=== PATIENT | male | born 1975 ===

== ENCOUNTER 2023-09-05 00:44 | Emergency (ER) | payer OTHER ==
[2023-09-05 00:50] VITALS: TEMP 98.3
[2023-09-05] MEDS: TOPICAL SKIN ADHESIVE 1 EACH AMP TOPICAL ONE (01:20)
--- NOTE | 2023-09-05 01:49 | ED ---
General Adult HPI - General Chief complaint: Extremity Injury, Lower Stated complaint: Leg Bleeding Time Seen by Provider: 09/05/23 00:54 Source: patient, EMS Mode of arrival: EMS - History of Present Illness Initial comments: This patient is a 48-year-old man who presents with complaint of bleeding from the right leg, lower portion. Patient states that he had removed a scab with nail clippers and then the leg would not stop bleeding. The patient states that the bleeding saturated through 3 pads and therefore he called EMS. He denies symptoms of anemia. No orthostatic symptoms. No lightheadedness, palpitations, syncope. No chest pain or dyspnea. Onset/Timin -: hour(s) Severity scale (1-10): 0 Consistency: constant Improves with: none Worsens with: none Associated Symptoms: denies other symptoms Treatments Prior to Arrival: other (bandage) - Related Data Allergies Allergy/AdvReac Type Severity Reaction Status Date / Time No Known Allergies Allergy Verified 09/05/23 00:50 Review of Systems ROS Statement: Those systems with pertinent positive or pertinent negative responses have been documented in the HPI. ROS Other: All systems not noted in ROS Statement are negative. Constitutional: Denies: fever, chills, weakness Respiratory: Denies: dyspnea Cardiovascular: Denies: chest pain, palpitations Gastrointestinal: Denies: nausea, vomiting Skin: Reports: as per HPI, lesions Neurological: Denies: headache Hematological/Lymphatic: Denies: easy bleeding Past Medical History Past Medical History: No Reported History History of Any Multi-Drug Resistant Organisms: None Reported Past Surgical History: No Surgical Hx Reported Past Psychological History: No Psychological Hx Reported Smoking Status: Never smoker Past Alcohol Use History: None Reported Past Drug Use History: None Reported General Exam General appearance: alert, in no apparent distress Respiratory exam: Present: normal lung sounds bilaterally. Absent: respiratory distress, wheezes, rales, rhonchi, stridor, accessory muscle use Cardiovascular Exam: Present: regular rate, normal rhythm, normal heart sounds. Absent: systolic murmur, diastolic murmur, rubs, gallop GI/Abdominal exam: Present: soft. Absent: distended, tenderness, guarding, rebound, rigid Neurological exam: Present: alert Skin exam: Present: warm, dry, normal color, other (Varicosity at the lateral aspect of the right leg about mid tibial level. There is no pulsatile bleeding.) Course Vital Signs 09/05/23 09/05/23 00:47 02:00 Temperature 98.3 F 98.3 F Pulse Rate 88 87 Respiratory 16 18 Rate Blood Pressure 141/94 136/90 O2 Sat by Pulse 97 96 Oximetry Medical Decision Making - Medical Decision Making I applied silver nitrate cautery and then applied skin adhesive over the varicosity. There was no further bleeding. Discussed appropriate further care and follow-up as well as return parameters. Was pt. sent in by a medical professional or institution (, ELISA, GROUP HOME WORKER, urgent care, hospital, or [place] [facility] facility...) When possible be specific @ -[No] Did you speak to anyone other than the patient for history (EMS, parent, family, police, friend...)? What history was obtained from this source @ -[No] Did you review nursing and triage notes (agree or disagree)? Why? @ -[I reviewed and agree with nursing and triage notes] Were old charts reviewed (outside hosp., previous admission, EMS record, old EKG, old radiological studies, urgent care reports/EKG's, [place] [facility] records)? Report findings @ -[No old charts were reviewed] Differential Diagnosis (chest pain, altered mental status, abdominal pain women, abdominal pain men, vaginal bleeding, weakness, fever, dyspnea, syncope, headache, dizziness, GI bleed, back pain, seizure, CVA, palpatations, mental health, musculoskeletal)? @ -[not applicable] EKG interpreted by me (3pts min.). @ -[As above] X-rays interpreted by me (1pt min.). @ -[None done] CT interpreted by me (1pt min.). @ -[None done] U/S interpreted by me (1pt. min.). @ -[None done] What testing was considered but not performed or refused? (CT, X-rays, U/S, labs)? Why? @ -[None] What meds were considered but not given or refused? Why? @ -[None] Did you discuss the management of the patient with other professionals (professionals i.e. ELISA Duran, GROUP HOME WORKER, lab, RT, psych nurse, clinical social worker, clearance diver, teacher, search and rescue officer, housing case manager)? Give summary @ -[No] Was smoking cessation discussed for >3mins.? @ -[No] Was critical care preformed (if so, how long)? @ -[No] Were there social determinants of health that impacted care today? How? (Homelessness, low income, unemployed, alcoholism, drug addiction, transportation, low edu. Level, literacy, decrease access to med. care, half-way, rehab)? @ -[No] Was there de-escalation of care discussed even if they declined (Discuss DNR or withdrawal of care, Hospice)? DNR status @ -[No] What co-morbidities impacted this encounter? (DM, HTN, Smoking, COPD, CAD, Cancer, CVA, ARF, Chemo, Hep., AIDS, mental health diagnosis, sleep apnea, morbid obesity)? @ -[None] Was patient admitted / discharged? Hospital course, mention meds given and route, prescriptions, significant lab abnormalities, going to OR and other pertinent info. @ -[See above Undiagnosed new problem with uncertain prognosis? @ -[No] Drug Therapy requiring intensive monitoring for toxicity (Heparin, Nitro, Insulin, Cardizem)? @ -[No] Were any procedures done? @ -[No] Diagnosis/symptom? @ -[Bleeding varicosity Acute, or Chronic, or Acute on Chronic? @ -[Acute Uncomplicated (without systemic symptoms) or Complicated (systemic symptoms)? @ -[Uncomplicated Side effects of treatment? @ -[No] Exacerbation, Progression, or Severe Exacerbation? @ -[No] Poses a threat to life or bodily function? How? (Chest pain, [place], [place], pneumonia, PE, COPD, DKA, ARF, appy, cholecystitis, CVA, Diverticulitis, Homicidal, Suicidal, threat to staff... and all critical care pts) @ -[No] Disposition Clinical Impression: Bleeding from varicose vein Disposition: HOME SELF-CARE Condition: Good Instructions (If sedation given, give patient instructions): Venous Insufficiency (DC) Is patient prescribed a controlled substance at d/c from ED?: No Referrals: Beth Maurice [Primary Care Provider] - 1-2 days
[2023-09-05 02:18] VITALS: BP 136/90; PULSE 87; RESP 18
== END 2023-09-05 02:00 | disposition home or self-care (01) ==
LOC: EC 00:44
DX: I83.891 Varicose veins of right lower extremity with other complications (principal)
CPT/HCPCS: 99283

== ENCOUNTER → 2024-06-21 | Outpatient (CLI) | payer OTHER ==
--- NOTE | 2024-06-21 09:35 | US ---
EXAMINATION TYPE: US arterial LE single level DATE OF EXAM: 06/21/2024 8:36 AM COMPARISONS: None CLINICAL INDICATION: Male, 49 years old with history of I73.9 PERIPH ARTERY DISEASE; Pt states tingli ng and discoloration to feet TECHNIQUE: Systolic pressures were taken of the upper and lower extremity arteries with ankle-brachia l indices and toe brachial indices calculated bilaterally. History of: Smoker: No Hypertension: Yes Diabetic: Yes Hyperlipidemia: No TIA/CVA: No Previous Vascular Surgery: No CAD: No IL: No Vascular Ulcers: No FINDINGS: Doppler Waveforms: Right: Multiphasic Left: Multiphasic Brachial Artery systolic pressure: Right: 118 Left: 117 Posterior Tibial artery systolic pressure: Right: 136 Left: 139 Dorsalis Pedis artery systolic pressure: Right: 128 Left: 133 Ankle-Brachial Indices: Right: 1.2 Left: 1.2 (Normal > 0.6; Mild 0.35 - 0.59, Moderate 0.12 - 0.34, Severe <0.12) IMPRESSION: MAGDIEL: Right: Normal 0.9 - 1.4, Recommendation: None Left: Normal 0.9 - 1.4, Recommendation: None [facility], , 06/21/2024 9:33 AM
== END | disposition home or self-care (01) ==
LOC: RADUSWWP 08:35
PROVIDERS: ATTEND Internal Medicine
DX: I73.9 Peripheral vascular disease, unspecified (principal)
CPT/HCPCS: 93922